=== PATIENT | male | born 1965 | race Caucasian/White ===

== ENCOUNTER → 2016-03-27 | Outpatient (CLI) | payer BC ==
[~2016-03-27] VITALS: Ht 167.6 cm; Wt 90.7 kg
[~2016-03-27] MED LIST: ALBUTEROL MDI INH; AZIT500T PO; BACIDCA PO; BUDE0.5S INH; LIDOCAINE 2% INJ 100 MG/5 ML SDV (FOR ANES.) As Ordered ONE; LOSA25TA8 PO; METH40VIAL IV; MOXI400IV IV; MUCI600T34 PO; NS 1,000 ML IV SCH; PRED20TA PO; PROPOFOL 200 MG/20 ML VIAL As Ordered ONE; SOLU125I IV; [UNRECOGNIZED DRUG - CODE] IM; diovan; duoneb
--- NOTE | 2016-03-27 13:03 | ROOR ---
Patient Name: Ashok Rosenberg Procedure Date: 03/27/2016 12:39 PM Date of : 1965 Age: 50 Room: [facility] Gender: Male Note Status: Finalized Procedure: Colonoscopy Indications: High risk colon cancer surveillance: Personal history of colonic polyps Providers: Malcolm Santoyo Jr, MD Referring MD: Kianna Cruz DO Requesting Provider: Medicines: Propofol per Anesthesia Complications: No immediate complications. Procedure: Pre-Anesthesia Assessment: - Prior to the procedure, a History and Physical was performed, and patient medications and allergies were reviewed. The patient is competent. The risks and benefits of the procedure and the sedation options and risks were discussed with the patient. All questions were answered and informed consent was obtained. Patient identification and proposed procedure were verified by the physician and the nurse in the pre-procedure area and in the procedure room. Mental Status Examination: alert and oriented. Airway Examination: normal oropharyngeal airway and neck mobility. Respiratory Examination: clear to auscultation. CV Examination: normal. ASA Grade Assessment: II - A patient with mild systemic disease. After reviewing the risks and benefits, the patient was deemed in satisfactory condition to undergo the procedure. The anesthesia plan was to use moderate sedation / analgesia (conscious sedation). Immediately prior to administration of medications, the patient was re-assessed for adequacy to receive sedatives. The heart rate, respiratory rate, oxygen saturations, blood pressure, adequacy of pulmonary ventilation, and response to care were monitored throughout the procedure. The physical status of the patient was re-assessed after the procedure. The Colonoscope was introduced through the anus and advanced to the cecum, identified by appendiceal orifice and ileocecal valve. The quality of the bowel preparation was adequate and good. The colonoscopy was performed without difficulty. The patient tolerated the procedure well. Findings: The perianal exam findings include non-thrombosed internal hemorrhoids, internal hemorrhoids that prolapse with straining, but spontaneously regress to the resting position (Grade II) and internal hemorrhoids that prolapse with straining, but require manual replacement into the anal canal (Grade III). Multiple small and large-mouthed diverticula were found in the sigmoid colon. Three polyps were found in the sigmoid colon, descending colon and cecum. The polyps were small in size. These polyps were removed with a hot snare. Resection was complete, but the polyp tissue was only partially retrieved. A medium polyp was found in the ascending colon. The polyp was removed with a hot snare. Resection and retrieval were complete. Impression: - Non-thrombosed internal hemorrhoids, internal hemorrhoids that prolapse with straining, but spontaneously regress to the resting position (Grade II) and internal hemorrhoids that prolapse with straining, but require manual replacement into the anal canal (Grade III) found on perianal exam. - Diverticulosis in the sigmoid colon. - Three small polyps in the sigmoid colon, in the descending colon and in the cecum, removed with a hot snare. Complete resection. Partial retrieval. - One medium polyp in the ascending colon, removed with a hot snare. Resected and retrieved. Recommendation: - Discharge patient to home (ambulatory). - Repeat colonoscopy in 3 years for surveillance. Malcolm Santoyo MD Malcolm Santoyo Jr, MD 03/27/2016 1:02:41 PM This report has been signed electronically. Number of Addenda: 0 Note Initiated On: 03/27/2016 12:39 PM Estimated Blood Loss: Estimated blood loss: none.
[2016-03-27 13:45] VITALS: BP 132/77
== END ==
LOC: M OPP 11:50
PROVIDERS: ATTEND Surgery
DX: Z12.11 Encounter for screening for malignant neoplasm of colon (principal); Z86.010 Personal history of colon polyps; K64.2 Third degree hemorrhoids; K57.30 Diverticulosis of large intestine without perforation or abscess without bleeding; D12.5 Benign neoplasm of sigmoid colon; D12.4 Benign neoplasm of descending colon; D12.0 Benign neoplasm of cecum; D12.2 Benign neoplasm of ascending colon; I10 Essential (primary) hypertension; Z72.0 Tobacco use; Z79.899 Other long term (current) drug therapy; Z88.5 Allergy status to narcotic agent

== ENCOUNTER → 2016-08-08 | Outpatient (REF) | payer BC ==
[~2016-08-08] MED LIST changes: -LIDOCAINE 2% INJ 100 MG/5 ML SDV (FOR ANES.) As Ordered ONE; -NS 1,000 ML IV SCH; -PROPOFOL 200 MG/20 ML VIAL As Ordered ONE
[2016-08-10 00:06] LABS: Lyme Disease IgG/IgM Antibodie <0.91 ISR (0.00-0.90); Lyme Disease IgM Ab Quantitati <0.80 index (0.00-0.79); SJOGREN'S ANTI SS-A <0.2 AI (0.0-0.9); SJOGREN'S ANTI SS-B <0.2 AI (0.0-0.9)
== END ==
LOC: M LAB REF 12:54
PROVIDERS: ATTEND Internal Medicine
DX: M25.50 Pain in unspecified joint (principal)

== ENCOUNTER 2016-11-21 12:55 | Emergency (ER) | payer BC ==
[~2016-11-21] VITALS: Ht 165.1 cm; Wt 95.5 kg
[2016-11-21] MEDS ORDERED: ONDANSETRON 4 MG ORAL DISINTEGRATING TAB (S0181) PO ONE (14:00)
[2016-11-21] MEDS ORDERED: KETOROLAC TROMETHAMINE 10 MG TAB PO ONE (14:00)
[2016-11-21] MEDS ORDERED: ULTR50TA8 PO (14:57)
[2016-11-21] MEDS ORDERED: ZOFR4TAB3 PO (14:57)
[2016-11-21] MEDS ORDERED: FLAG500T PO (14:57)
[2016-11-21] MEDS ORDERED: CIPR-249 PO (14:57)
[2016-11-21 15:03] VITALS: BP 137/72
--- NOTE | 2016-11-21 15:15 | REP ---
CT ABDOMEN AND PELVIS WITHOUT CONTRAST: CT abdomen and pelvis performed without oral or IV contrast. Sagittal and coronal reconstruction images are performed. No infiltrate is seen in the visualized lung bases. The liver, spleen, adrenals, pancreas and right kidney appear unremarkable. Left kidney again demonstrates a cyst in the lower pole. This measures about 4 cm in diameter. There is no hydronephrosis bilaterally. There is no abdominal aortic aneurysm. There is no adenopathy. There is no free air or free fluid. There are two adjacent ventral hernias in the region of the umbilicus. These have been seen on prior study of 01/17/2014. There is diverticulosis of the sigmoid colon with segmental thickening and inflammatory change in the surrounding fat consistent with diverticulitis. No abscess is seen. The urinary bladder is unremarkable. IMPRESSION: Sigmoid diverticulitis. No free air, free fluid, or abscess. Two ventral hernias containing fat are again noted in the region of the umbilicus as seen on prior study in 2013. There is a cyst in the lower pole of the left kidney. Signed by Elías Rodrigez MD 11/21/2016 07:22 P
== END 2016-11-21 15:05 | disposition home or self-care (01) ==
LOC: M ED 12:55
DX: K57.92 Diverticulitis of intestine, part unspecified, without perforation or abscess without bleeding (principal); I10 Essential (primary) hypertension; Z79.899 Other long term (current) drug therapy; Z88.5 Allergy status to narcotic agent; Z88.8 Allergy status to other drugs, medicaments and biological substances; Z91.040 Latex allergy status; F17.210 Nicotine dependence, cigarettes, uncomplicated

== ENCOUNTER → 2016-12-19 | Outpatient (CLI) | payer BC ==
[~2016-12-19] MED LIST changes: +CIPR-249 PO; +FLAG500T PO; +ULTR50TA8 PO; +ZOFR4TAB3 PO
--- NOTE | 2016-12-19 13:45 | REP ---
RIGHT ELBOW, FOUR VIEWS: HISTORY: Pain. There is no acute fracture or dislocation. The joint space is normal in appearance. A small osteophyte is present on the posterior ulna. IMPRESSION: There is no acute fracture or dislocation. Signed by Maicol Briceño MD 12/19/2016 01:53 P
== END ==
LOC: M LRY 12:50
PROVIDERS: ATTEND Nurse Practitioner Family
DX: M25.521 Pain in right elbow (principal)

== ENCOUNTER 2017-03-12 14:48 | Emergency (ER) | payer OTHER, BC ==
[2017-03-12] MEDS: RABIES VACCINE HUMAN 2.5 INTERNATIONAL UNITS/ML VIAL (90675) IM (15:30)
[2017-03-12] MEDS ORDERED: RABIES IMMUNE GLOBULIN 1500 INTERNATIONAL UNITS/10 ML VIAL (90375) IM (15:30)
[2017-03-12] MEDS: RABIES IMMUNE GLOBULIN 300 INTERNATIONAL UNITS/2 ML VIAL (90375) IM (16:06)
[2017-03-12] MEDS: RABIES IMMUNE GLOBULIN 1500 INTERNATIONAL UNITS/10 ML VIAL (90375) IM (16:06)
== END 2017-03-12 16:26 | disposition home or self-care (01) ==
LOC: M ED 14:48
DX: S61.256A Open bite of right little finger without damage to nail, initial encounter (principal); W55.81XA Bitten by other mammals, initial encounter; Y92.008 Other place in unspecified non-institutional (private) residence as the place of occurrence of the external cause; Y93.89 Activity, other specified; Y99.0 Civilian activity done for income or pay; I10 Essential (primary) hypertension; F17.210 Nicotine dependence, cigarettes, uncomplicated; Z79.899 Other long term (current) drug therapy; Z88.5 Allergy status to narcotic agent; Z91.040 Latex allergy status; Z88.8 Allergy status to other drugs, medicaments and biological substances; Z98.890 Other specified postprocedural states
CPT/HCPCS: 90375

== ENCOUNTER 2017-03-15 11:30 | Emergency (ER) | payer OTHER ==
[2017-03-15] MEDS: RABIES VACCINE HUMAN 2.5 INTERNATIONAL UNITS/ML VIAL (90675) IM (11:53)
== END 2017-03-15 12:01 | disposition home or self-care (01) ==
LOC: M ED 11:30
DX: Z20.3 Contact with and (suspected) exposure to rabies (principal); I10 Essential (primary) hypertension; F17.210 Nicotine dependence, cigarettes, uncomplicated; Z79.899 Other long term (current) drug therapy; Z88.5 Allergy status to narcotic agent; Z91.040 Latex allergy status; Z88.8 Allergy status to other drugs, medicaments and biological substances; Z98.890 Other specified postprocedural states
CPT/HCPCS: 90675

== ENCOUNTER 2017-03-19 14:36 | Emergency (ER) | payer OTHER ==
[2017-03-19] MEDS: RABIES VACCINE HUMAN 2.5 INTERNATIONAL UNITS/ML VIAL (90675) IM (15:17)
== END 2017-03-19 15:43 | disposition home or self-care (01) ==
LOC: M ED 14:36
DX: Z20.3 Contact with and (suspected) exposure to rabies (principal); I10 Essential (primary) hypertension; F17.210 Nicotine dependence, cigarettes, uncomplicated; Z79.899 Other long term (current) drug therapy; Z88.5 Allergy status to narcotic agent; Z88.8 Allergy status to other drugs, medicaments and biological substances; Z91.040 Latex allergy status; Z98.890 Other specified postprocedural states
CPT/HCPCS: 90471

== ENCOUNTER 2017-03-26 06:17 | Emergency (ER) | payer OTHER ==
[2017-03-26] MEDS: RABIES VACCINE HUMAN 2.5 INTERNATIONAL UNITS/ML VIAL (90675) IM (06:56)
== END 2017-03-26 07:03 | disposition home or self-care (01) ==
LOC: M ED 06:17
DX: Z20.3 Contact with and (suspected) exposure to rabies (principal); W55.81XA Bitten by other mammals, initial encounter; Y92.89 Other specified places as the place of occurrence of the external cause; Y93.89 Activity, other specified; Y99.0 Civilian activity done for income or pay
CPT/HCPCS: 90471

== ENCOUNTER → 2017-10-22 | Outpatient (CLI) | payer OTHER, BC | LOC: M LRY 18:23 | DX: S99.922A Unspecified injury of left foot, initial encounter (principal); M77.32 Calcaneal spur, left foot | CPT/HCPCS: 73630 ==

== ENCOUNTER → 2018-01-04 | Outpatient (CLI) | payer BC | LOC: M WUC 09:53 | DX: R07.89 Other chest pain (principal); M51.34 Other intervertebral disc degeneration, thoracic region | CPT/HCPCS: 71046 ==

== ENCOUNTER → 2018-11-12 | Outpatient (CLI) | payer BC ==
[~2018-11-12] MED LIST changes: +AVEL1INJ IV; +GASTROGRAFIN SOLUTION 30ML (Q9963) As Ordered ONE; +ISOVUE-370 76% 100ML VIAL (Q9967) As Ordered ONE; +LOSA25TA14 PO; -LOSA25TA8 PO; -MOXI400IV IV; +ZOFR4TAB14 PO; -ZOFR4TAB3 PO
[2018-11-12 13:52] LABS: HEMATOCRIT 47.8 % (42.0-52.0); HEMOGLOBIN 15.9 g/dl (13.5-17.5); MEAN CORPUSCULAR HEMOGLOBIN 31.2 pg (27.0-33.0); MEAN CORPUSCULAR HGB CONC 33.3 g/dl (32.0-36.5); MEAN CORPUSCULAR VOLUME 93.9 fl (80.0-96.0); PLATELET COUNT, AUTOMATED 150 10^3/uL (150-450); RED BLOOD COUNT 5.09 10^6/uL (4.30-6.10); WHITE BLOOD COUNT 7.9 10^3/uL (4.0-10.0)
[2018-11-12 14:21] LABS: BLOOD UREA NITROGEN 12 MG/DL (7-18); CALCIUM LEVEL 9.1 MG/DL (8.5-10.1); CARBON DIOXIDE LEVEL 27 MEQ/L (21-32); CHLORIDE LEVEL 107 MEQ/L (98-107); CREATININE FOR GFR 0.84 MG/DL (0.70-1.30); GLOMERULAR FILTRATION RATE > 60.0 (>56); GLUCOSE, FASTING 75 MG/DL (70-100); POTASSIUM SERUM 4.2 MEQ/L (3.5-5.1); SODIUM LEVEL 141 MEQ/L (136-145)
--- NOTE | 2018-11-12 14:49 | REP ---
CT of the abdomen pelvis without and with contrast Indication: Generalized abdominal pain. Comparison: CT abdomen pelvis of 11/21/2016. Technique: Axial CT of the abdomen was performed without contrast. Following the uneventful intravenous administration of 100 ml Isovue 370, axial CT of the abdomen and pelvis was performed with contrast. Oral contrast media was administered. Coronal and sagittal soft tissue reformatted images and axial lung images of the lung bases were provided. Findings: Within the lung bases, there is no suspicious nodule. The heart size is normal. There is no pleural or pericardial effusion. The liver is normal in size and without focal lesion. The spleen, adrenal glands, pancreas and right kidney are unremarkable. There is similar appearance of a 5 cm left renal lower pole cyst. There is no hydronephrosis or nephrolithiasis. The abdominal aorta is normal in course and caliber. There are atherosclerotic calcifications of the abdominal aorta and its branches. There are tiny retroperitoneal mesenteric lymph nodes. The stomach is partially distended. Small and large bowel loops are normal in caliber. There is diffuse thickening of the sigmoid colon similar to prior with multiple sigmoid diverticula. There is no soft tissue stranding of the surrounding fat to suggest acute diverticulitis. There is no intraperitoneal free air or free fluid. There is no focal fluid collection. The urinary bladder is partially distended and unremarkable. There is some focal calcification within the prostate gland. The seminal vesicles are collapsed. There is similar appearance of 2 fat containing periumbilical focal hernias. There is rim calcified granulomata within the subcutaneous soft tissues of the right hip. No suspicious focal lesion is identified. Impression: Sigmoid diverticulosis without findings for acute diverticulitis. No evidence of acute disease within the abdomen or pelvis. Similar fat containing ventral abdominal hernias. Unchanged right renal cyst. Electronically Signed by Akbar Ferrari MD 11/12/2018 02:42 P
== END ==
LOC: M RAD 12:02
PROVIDERS: ATTEND Surgery
DX: K57.32 Diverticulitis of large intestine without perforation or abscess without bleeding (principal); N28.1 Cyst of kidney, acquired
CPT/HCPCS: 74178; 80048; 85027; Q9963; Q9967

== ENCOUNTER → 2018-12-10 | Outpatient (CLI) | payer BC ==
[~2018-12-10] MED LIST changes: -GASTROGRAFIN SOLUTION 30ML (Q9963) As Ordered ONE; -ISOVUE-370 76% 100ML VIAL (Q9967) As Ordered ONE; +PERC5TAB12 PO
--- NOTE | 2018-12-11 10:04 | ECGEPIP ---
[facility] Test Date: 2018-12-10 Pat Name: CASSANDRA RAMAN Department: Room: - Gender: Male Card Placer: VETO : 1965 Requested By: BETTY Red Order Number: [id number] Reading MD: Gunner Villalba Measurements Intervals [place] Rate: 54 P: 43 [place]: 146 QRS: 38 QRSD: 93 T: 53 QT: 390 QTc: 373 Interpretive Statements SINUS BRADYCARDIA NO PRIOR Electronically Signed on 12-11-2018 10:04:37 EDT by Gunner Villalba
== END ==
LOC: M EKG 12:07
PROVIDERS: ATTEND Anesthesiology
DX: Z01.818 Encounter for other preprocedural examination (principal); R03.0 Elevated blood-pressure reading, without diagnosis of hypertension

== ENCOUNTER 2018-12-14 12:01 | Day surgery (SDC) | payer BC ==
[~2018-12-14] VITALS: Ht 165.1 cm; Wt 100.9 kg
[~2018-12-14 12:01] MED LIST changes: +LIDOCAINE 1% MDV 20ML VIAL SQ PRN; +LR 1,000 ML IV ONE; -PERC5TAB12 PO; +ceFAZolin SOD 1 GM in D5W MINI-BAG PLUS 50 ML IV ONE
[2018-12-14] MEDS ORDERED: PROPOFOL 200 MG/20 ML VIAL As Ordered ONE ×2 (12:45→14:28)
[2018-12-14] MEDS ORDERED: ONDANSETRON 4MG/2ML VIAL (J2405) As Ordered ONE (12:45)
[2018-12-14] MEDS ORDERED: dexameTHASONE 4 MG/ML 1ML VIAL (J1100) As Ordered ONE (12:45)
[2018-12-14] MEDS ORDERED: ROCURONIUM BROMIDE 50 MG/5 ML VIAL As Ordered ONE ×2 (12:45→15:19)
[2018-12-14] MEDS ORDERED: LIDOCAINE 2% INJ 100 MG/5 ML SDV (FOR ANES.) As Ordered ONE (12:45)
[2018-12-14] MEDS ORDERED: fentaNYL 100 MCG/2 ML INJECTION (J3010) As Ordered ONE (12:46)
[2018-12-14] MEDS ORDERED: MIDAZOLAM INJ 2 MG/2 ML VIAL (J2250) As Ordered ONE (12:46)
[2018-12-14] MEDS ORDERED: LACRILUBE (AKWA TEARS) OPHTH OINT 3.5 GM As Ordered ONE (12:54)
[2018-12-14] MEDS ORDERED: BUPIVACAINE/EPIN 0.25% 30 ML VIAL As Ordered ONE (14:02)
[2018-12-14] MEDS ORDERED: fentaNYL 250 MCG/5 ML INJECTION (J3010) As Ordered ONE (14:26)
[2018-12-14] MEDS ORDERED: SUGAMMADEX SODIUM 500 MG/5 ML VIAL (BRIDION) As Ordered ONE (14:44)
[2018-12-14] MEDS ORDERED: KETOROLAC 60 MG/2 ML VIAL (J1885) As Ordered ONE (14:44)
[2018-12-14] MEDS ORDERED: ACETAMINOPHEN 1000MG 100ML IV BTL (OFIRMEV) (J0131 PER 10MG) As Ordered ONE (14:44)
[2018-12-14] MEDS ORDERED: GLYCOPYRROLATE INJ 0.2 MG/ML 2 ML VIAL As Ordered ONE (14:51)
[2018-12-14] MEDS ORDERED: KETAMINE HCL 200 MG/20 ML VIAL As Ordered ONE (14:55)
[2018-12-14] MEDS ORDERED: BUPIVACAINE LIPOSOME/PF 1.3% 20ML VIAL (13.3MG/ML)(EXPAREL)(C9290 PER1MG) As Ordered ONE (14:56)
[2018-12-14] MEDS ORDERED: BUPIVACAINE HCL 0.25% 10 ML VIAL As Ordered ONE (14:56)
[2018-12-14] MEDS ORDERED: oxyCODONE 5MG TAB As Ordered ONE (16:19)
[2018-12-14] MEDS: oxyCODONE 5MG TAB PO PRN ×2 (16:20→16:50)
[2018-12-14] MEDS ORDERED: fentaNYL 100 MCG/2 ML INJECTION (J3010) IV PRN (16:30)
[2018-12-14] MEDS ORDERED: ONDANSETRON 4MG/2ML VIAL (J2405) IV PRN (16:30)
[2018-12-14] MEDS ORDERED: LR 1,000 ML IV SCH ×2 (16:30→17:31)
[2018-12-14] MEDS ORDERED: PERC5TAB12 PO (16:42)
[2018-12-14 18:10] VITALS: BP 136/80
== END 2018-12-14 18:15 | disposition home or self-care (01) ==
LOC: M SDC 12:01
PROVIDERS: ATTEND Surgery
DX: K42.9 Umbilical hernia without obstruction or gangrene (principal); I10 Essential (primary) hypertension; K57.92 Diverticulitis of intestine, part unspecified, without perforation or abscess without bleeding; Z79.899 Other long term (current) drug therapy; Z88.5 Allergy status to narcotic agent
CPT/HCPCS: 49652; C1781; C9290; J0131; J0690; J1100; J1885; J2250; J2405; J3010

== ENCOUNTER → 2019-03-03 | Outpatient (REF) | payer BC ==
[~2019-03-03] MED LIST changes: -LIDOCAINE 1% MDV 20ML VIAL SQ PRN; -LR 1,000 ML IV ONE; +PERC5TAB12 PO; -ceFAZolin SOD 1 GM in D5W MINI-BAG PLUS 50 ML IV ONE
[2019-03-03 17:16] LABS: HEMATOCRIT 46.7 % (42.0-52.0); HEMOGLOBIN 15.2 g/dl (13.5-17.5)
[2019-03-03 17:43] LABS: BLOOD UREA NITROGEN 13 MG/DL (7-18); CALCIUM LEVEL 8.7 MG/DL (8.5-10.1); CARBON DIOXIDE LEVEL 29 MEQ/L (21-32); CHLORIDE LEVEL 106 MEQ/L (98-107); CHOLESTEROL LEVEL 131 MG/DL (<200); CREATININE FOR GFR 1.02 MG/DL (0.70-1.30); GLOMERULAR FILTRATION RATE > 60.0 (>56); GLUCOSE, FASTING 101 MG/DL (70-100); HDL CHOLESTEROL 37 MG/DL (>40); LDL CHOLESTEROL 67 MG/DL (<100); NON-HDL-C 94 MG/DL; POTASSIUM SERUM 4.2 MEQ/L (3.5-5.1); SODIUM LEVEL 142 MEQ/L (136-145); TRIGLYCERIDES LEVEL 133 MG/DL (<150)
[2019-03-03 17:49] LABS: HEMOGLOBIN A1c 6.1 %
== END ==
LOC: M SFHCLERA 13:44
PROVIDERS: ATTEND Family Medicine
DX: Z13.1 Encounter for screening for diabetes mellitus (principal); Z13.220 Encounter for screening for lipoid disorders

== ENCOUNTER 2019-04-14 08:03 | Day surgery (SDC) | payer BC ==
[~2019-04-14] VITALS: Ht 165.1 cm; Wt 99.2 kg
[~2019-04-14 08:03] MED LIST changes: +NS 1,000 ML IV ONE
[2019-04-14] MEDS ORDERED: LIDOCAINE 2% INJ 100 MG/5 ML SDV (FOR ANES.) As Ordered ONE (09:11)
[2019-04-14] MEDS ORDERED: propofoL 500 MG/50 ML VIAL As Ordered ONE (09:11)
--- NOTE | 2019-04-14 09:29 | ROOR ---
Patient Name: Ashok Rosenberg Procedure Date: 04/14/2019 8:54 AM Date of : 1965 Age: 53 Room: [facility] Gender: Male Note Status: Finalized Procedure: Colonoscopy Indications: High risk colon cancer surveillance: Personal history of colonic polyps Providers: Malclom Santoyo Jr, MD Referring MD: Kianna Cruz DO Requesting Provider: Medicines: Propofol per Anesthesia Complications: No immediate complications. Procedure: Pre-Anesthesia Assessment: - Prior to the procedure, a History and Physical was performed, and patient medications and allergies were reviewed. The patient is competent. The risks and benefits of the procedure and the sedation options and risks were discussed with the patient. All questions were answered and informed consent was obtained. Patient identification and proposed procedure were verified by the physician and the nurse in the pre-procedure area and in the procedure room. Mental Status Examination: alert and oriented. Airway Examination: normal oropharyngeal airway and neck mobility. Respiratory Examination: clear to auscultation. CV Examination: normal. ASA Grade Assessment: II - A patient with mild systemic disease. After reviewing the risks and benefits, the patient was deemed in satisfactory condition to undergo the procedure. The anesthesia plan was to use moderate sedation / analgesia (conscious sedation). Immediately prior to administration of medications, the patient was re-assessed for adequacy to receive sedatives. The heart rate, respiratory rate, oxygen saturations, blood pressure, adequacy of pulmonary ventilation, and response to care were monitored throughout the procedure. The physical status of the patient was re-assessed after the procedure. The Colonoscope was introduced through the anus and advanced to the cecum, identified by appendiceal orifice and ileocecal valve. The colonoscopy was performed without difficulty. The patient tolerated the procedure well. The quality of the bowel preparation was adequate. Findings: The recto-sigmoid colon, descending colon, ascending colon, cecum, appendiceal orifice and ileocecal valve appeared normal. A medium polyp was found in the transverse colon. The polyp was removed with a hot snare. Resection and retrieval were complete. A diminutive polyp was found in the rectum. The polyp was hyperplastic. The polyp was removed with a hot snare. Resection was complete, but the polyp tissue was not retrieved. Many small and large-mouthed diverticula were found in the sigmoid colon and descending colon. Impression: - The recto-sigmoid colon, descending colon, ascending colon, cecum, appendiceal orifice and ileocecal valve are normal. - One medium polyp in the transverse colon, removed with a hot snare. Resected and retrieved. - One diminutive polyp in the rectum, removed with a hot snare. Complete resection. Polyp tissue not retrieved. - Diverticulosis in the sigmoid colon and in the descending colon. Recommendation: - Discharge patient to home (ambulatory). - Repeat colonoscopy in 3 years for surveillance. Malcolm Santoyo MD Malcolm Santoyo Jr, MD 04/14/2019 9:28:55 AM Electronically signed by Malcolm Santoyo Jr, MD Number of Addenda: 0 Note Initiated On: 04/14/2019 8:54 AM Estimated Blood Loss: Estimated blood loss: none.
[2019-04-14 10:03] VITALS: BP 158/95
== END 2019-04-14 10:04 | disposition home or self-care (01) ==
LOC: M OPP 08:03
PROVIDERS: ATTEND Surgery
DX: Z12.11 Encounter for screening for malignant neoplasm of colon (principal); Z86.010 Personal history of colon polyps; D12.3 Benign neoplasm of transverse colon; K62.1 Rectal polyp; K57.30 Diverticulosis of large intestine without perforation or abscess without bleeding; Z79.899 Other long term (current) drug therapy; F17.210 Nicotine dependence, cigarettes, uncomplicated

== ENCOUNTER 2019-05-11 13:53 | Inpatient (IN) | payer BC ==
[~2019-05-11] VITALS: Ht 165.1 cm; Wt 100.5 kg
[~2019-05-11 13:53] MED LIST changes: -ALEV220T22 PO; -BENZ-18 PO; -MUCI600T31 PO; -PROAAER10 INH
[2019-05-11] MEDS ORDERED: IPRATROPIUM 0.5MG/ALBUTEROL 2.5MG INH SOL UD 3ML (DUONEB)(J7620) NEB ONE (14:45)
[2019-05-11 14:48] LABS: BASO # 0.1 10^3/uL (0.0-0.2); BASO % 0.6 % (0.0-1.0); EOS # 0.1 10^3/uL (0.0-0.5); EOS % 0.8 % (0.0-3.0); HEMATOCRIT 48.3 % (42.0-52.0); HEMOGLOBIN 15.9 g/dl (13.5-17.5); LYMPH # 0.8 10^3/uL (1.5-5.0); LYMPH % 7.9 % (24.0-44.0); MEAN CORPUSCULAR HEMOGLOBIN 30.2 pg (27.0-33.0); MEAN CORPUSCULAR HGB CONC 32.9 g/dl (32.0-36.5); MEAN CORPUSCULAR VOLUME 91.8 fl (80.0-96.0); MONO # 0.6 10^3/uL (0.0-0.8); MONO % 6.1 % (0.0-5.0); NEUTROPHILS # 8.8 10^3/uL (1.5-8.5); NEUTROPHILS % 84.2 % (36.0-66.0); PLATELET COUNT, AUTOMATED 122 10^3/uL (150-450); RED BLOOD COUNT 5.26 10^6/uL (4.30-6.10); WHITE BLOOD COUNT 10.4 10^3/uL (4.0-10.0)
--- NOTE | 2019-05-11 15:03 | REP ---
REASON FOR EXAM: Dyspnea. COMPARISON: 01/04/2018. FINDINGS: The superior mediastinal structures are midline. The cardiac silhouette is unremarkable in size, shape, and position. The diaphragmatic surfaces of the lungs are regular, and the costophrenic angles are clear. The pulmonary song are clear. The imaged osseous structures are intact. IMPRESSION: There is no acute cardiopulmonary disease. No significant change. Electronically Signed by Gigi Day DO 05/11/2019 03:36 P
[2019-05-11 15:10] LABS: INFLUENZA A AMPLIFICATION NEGATIVE (NEGATIVE); INFLUENZA B AMPLIFICATION NEGATIVE (NEGATIVE)
[2019-05-11] MEDS ORDERED: methylPREDNISolone INJ 125 MG/2 ML VIAL (J2930) IV ONE (17:30)
[2019-05-11] MEDS: IPRATROPIUM 0.5MG/ALBUTEROL 2.5MG INH SOL UD 3ML (DUONEB)(J7620) NEB PRN ×3 (17:30→17:53)
[2019-05-11] MEDS ORDERED: NS 1,000 ML IV ONE (17:30)
[2019-05-11 17:49] LABS: ALBUMIN 3.8 GM/DL (3.2-5.2); ALT/SGPT 29 U/L (12-78); BILIRUBIN,DIRECT 0.2 MG/DL (0.0-0.2); BILIRUBIN,TOTAL 0.6 MG/DL (0.2-1.0); CK-MB VALUE MASS 1.3 NG/ML (<3.6); CPK CREATINE PHOSPHOKINASE 270 U/L (39-308); MB/CK RELATIVE INDEX 0.48 (< OR =4); TOTAL PROTEIN 6.5 GM/DL (6.4-8.2); TROPONIN I < 0.02 NG/ML (< 0.10)
[2019-05-11 17:58] LABS: ABG BASE EXCESS -2.5 (-2.0-2.0); ABG HCO3 20.6 MEQ/L (22.0-26.0); ABG PARTIAL PRESSURE CO2 31.4 mmHg (35.0-45.0); ABG PARTIAL PRESSURE O2 61.4 mmHg (75.0-100.0); ABG STANDARD HCO3 22.2 MEQ/L (22.0-26.0); ABG TOTAL CO2 21.5 MEQ/L (22.0-29.0); ABG pH (ARTERIAL) 7.434 UNITS (7.350-7.450)
[2019-05-11] MEDS ORDERED: ISOVUE-370 76% 100ML VIAL (Q9967) As Ordered ONE (18:13)
--- NOTE | 2019-05-11 19:41 | REPVR ---
PROCEDURE INFORMATION: Exam: CT Angiography Chest With Contrast Exam date and time: 05/11/2019 6:50 PM Age: 54 years old Clinical indication: Chest pain; Additional info: Hypoxia, neg cxr, dyspnea, cough TECHNIQUE: Imaging protocol: Computed tomographic angiography of the chest with intravenous contrast. 3D rendering: MIP and/or 3D reconstructed images were created by the technologist. Radiation optimization: All CT scans at this facility use at least one of these dose optimization techniques: automated exposure control; mA and/or kV adjustment per patient size (includes targeted exams where dose is matched to clinical indication); or iterative reconstruction. Contrast material: ISO 370; Contrast volume: 75 ml; Contrast route: IV; COMPARISON: CT Chest with contrast 04/06/2013 9:19 AM FINDINGS: Pulmonary arteries: Normal. No pulmonary emboli. Aorta: No aneurysmal dilatation of the thoracic aorta or dissection. Lungs: No lung consolidation. Pleural space: No pleural effusion. Heart: No cardiomegaly or pericardial effusion. Spleen: Possible clip in the spleen. No further significant findings in the upper abdomen however images are degraded by respiratory motion. Lymph nodes: No mediastinal or hilar lymphadenopathy. Calcified right hilar lymph node likely due to old granulomatous disease. Bones/joints: No significant skeletal findings other than flowing hyperostosis with bridging osteophytes in the thoracic spine. Soft tissues: Unremarkable. IMPRESSION: 1. No evidence of pulmonary emboli. 2. No evidence of pneumonia. Electronically signed by: Lisandra Staley On 05/11/2019 19:41:27 PM
[2019-05-11] MEDS ORDERED: KETOROLAC 30 MG/ML VIAL (J1885) IV ONE (20:15)
--- NOTE | 2019-05-11 20:28 | HPEPDOC ---
[facility] Medical History & Physical Date of Admission May 11, 2019 Date of Service: May 11, 2019 Primary Care Physician: Stephanie Padilla Attending Physician: TAD ELMORE MD History and Physical TIME OF SERVICE: 9:10 PM CHIEF COMPLAINT: Shortness of breath HISTORY OF PRESENT ILLNESS: This is a 54-year-old male who presents with shortness of breath associated with a dry cough, muscle aches, runny nose and fever yesterday. 3 of his coworkers have been sick Per discussion with the ER provider, his initial O2 sats when the 80s, which took him off of oxygen. His O2 sat dropped to 86. REVIEW OF SYSTEMS: 12 point review of systems negative except as listed in HPI PAST MEDICAL/ SURGICAL HISTORY: Chronic HTN Diverticular disease. Chronic back pain status post laminectomy Resection of benign mass on chest SOCIAL HISTORY: Former smoker. Drinks alcohol socially FAMILY HISTORY: He denies any family of medical problems ALLERGIES: Please see below. HOME MEDICATIONS: Please see below. Vital Signs Date Time Temp Pulse Resp B/P (MAP) Pulse Ox O2 Delivery O2 Flow Rate FiO2 05/11/19 13:54 100.3 84 22 167/94 (118) 91 Room Air 05/11/19 17:16 3.0 PHYSICAL EXAMINATION: GEN: well-nourished / well developed/ NAD INTEGUMENT: not flushed/ not jaundice HEENT: NCAT / lips acyanotic /mucus membranes moist and pink CVS: RRR/NMRG LUNGS: able to speak full sentences without stopping to take a breath / coughing /breath sounds are diminished ABDOMEN: Contour (flat) / soft & not tender with palpation MSK/EXTREMITIES: range of motion intact in all 4 extremities NEURO: CN 2-12 are grossly intact / speech is not dysarthric PSYCH: alert and oriented to person place and time/ able to understand and follow all commands LABORATORY DATA: Total Bilirubin 0.6, Direct Bilirubin 0.2, Aspartate Amino Transf (AST/SGOT) 11, Alanine Aminotransferase (ALT/SGPT) 29, Alkaline Phosphatase 71, Total Creatine Kinase 270, Creatine Kinase MB 1.3, Creatine Kinase MB Relative Index 0.48, Troponin I < 0.02, Total Protein 6.5, Albumin 3.8, Albumin/Globulin Ratio 1.41, Influenza Type A (RT-PCR) NEGATIVE, Influenza Type B (RT-PCR) NEGATIVE Blood Gas Bicarbonate Standard 22.2, Arterial Blood pH 7.434, Arterial Blood Partial Pressure CO2 31.4L, Arterial Blood Partial Pressure O2 61.4L, Arterial Blood Total CO2 21.5L, Arterial Blood HCO3 20.6L, Arterial Blood Base Excess - 2.5L, Arterial Blood Oxygen Saturation 91.0L Lactic Acid Level 2.2*H IMAGING: Chest x-ray "IMPRESSION:There is no acute cardiopulmonary disease. No significant change." CT chest "IMPRESSION: 1. No evidence of pulmonary emboli. 2. No evidence of p neumonia. " MICROBIOLOGY: Please see below. ASSESSMENT: Mr. Rosenberg is a 54-year-old with a history of hypertension who is admitted for management of sepsis secondary to RSV. PLAN: 1. Sepsis secondary to RSV Criteria include tachycardia and tachypnea He also has hypoxia NEW2S Score = high risk Plan: admit to PCU / telemetry / trend lactic acid/ continuous pulse ox/supplemental oxygen/ IV fluids/f/u blood cx / albuterol when necessary Acetaminophen PRN for fever / target MAP 65 to 70 / f/u Is and Os with target UOP of at least 0.5 ml/kg/H / target serum glucose 140-180 while acutely ill 2. Anion gap metabolic acidosis secondary to lactic acidosis. The persistently elevated lactic acid is likely due to neb treatments. - IVF/ trend lactic acid 3. Chronic HTN - losartan 4. Obesity with BMI of 37 complicates care - f/u A1C / the pt can f/u w his or her PCP for STOP BANG questionnaire, senior behavioral scientist consult DVT PROPHYLAXIS: Lovenox DISPOSITION: Home after more than 2 midnight's stay Home Medications Scheduled Losartan Potassium (Losartan Potassium) 25 Mg Tab, 25 MG PO DAILY Scheduled PRN Naproxen Sodium (Aleve) 220 Mg Tablet, 440 MG PO BID PRN for PAIN Allergies Coded Allergies: hydromorphone (Verified Allergy, Severe, THROAT SWELLING, 11/29/18) meperidine (Verified Allergy, Severe, THROAT SWELLING, 11/29/18) A-FIB/CHADSVASC A-FIB History Current/History of A-Fib/PAF?: No Current PO Anticoag Therapy: No TAD ELMORE MD May 11, 2019 20:28
[2019-05-11] MEDS ORDERED: MOM 30ML SUSPENSION UDC PO PRN (20:30)
[2019-05-11] MEDS ORDERED: MAALOX 30 ML SUSP *UDC PO PRN (20:30)
[2019-05-11] MEDS ORDERED: ALEV220T22 PO (20:59)
--- NOTE | 2019-05-11 21:01 | ECGEPIP ---
[facility] - ED Test Date: 2019-05-11 Pat Name: CASSANDRA RAMAN Department: Room: - Gender: Male Deburrer: levi : 1965 Requested By: DAVE Everett PA-C Order Number: [id number] Reading MD: Jody Benitez Measurements Intervals [place] Rate: 90 P: 51 [place]: 147 QRS: 43 QRSD: 98 T: 53 QT: 372 QTc: 456 Interpretive Statements SINUS RHYTHM baseline artifact may affect interpretation INCREASED RATE 12/10/18 Electronically Signed on 05-11-2019 21:01:31 EDT by Jody Benitez
--- NOTE | 2019-05-11 21:04 | ECGEPIP ---
[facility] - ED Test Date: 2019-05-11 Pat Name: CASSANDRA RAMAN Department: Room: - Gender: Male Dice Table Person: ADILENE : 1965 Requested By: DAVE Everett PA-C Order Number: [id number] Reading MD: Jody Benitez Measurements Intervals [place] Rate: 102 P: -2 NJ: 113 QRS: 34 QRSD: 90 T: 46 QT: 325 QTc: 425 Interpretive Statements SINUS TACHYCARDIA WITH SHORT [place] INTERVAL ABNORMAL RHYTHM ECG INCREASED RATE 05/11/19 17:49 Electronically Signed on 05-11-2019 21:04:02 EDT by Jody Benitez
[2019-05-11 23:45] VITALS: BP 150/62
[2019-05-12] VITALS (36 sets, daily range): BP systolic 123–160; BP diastolic 42–83; O2SAT 90–96
[2019-05-12] MEDS: ACETAMINOPHEN TAB 650MG DOSE (2X325MG) PO PRN ×3 (00:01→20:16)
[2019-05-12] MEDS: DOCUSATE SODIUM 100 MG CAP PO SCH ×3 (00:20→20:17)
[2019-05-12] MEDS: ALBUTEROL SULFATE 2.5 MG/0.5 ML INH NEB SOLN NEB PRN ×2 (00:33→11:24)
[2019-05-12 04:24] LABS: HEMATOCRIT 45.6 % (42.0-52.0); MEAN CORPUSCULAR HEMOGLOBIN 30.5 pg (27.0-33.0); MEAN CORPUSCULAR HGB CONC 32.9 g/dl (32.0-36.5); MEAN CORPUSCULAR VOLUME 92.7 fl (80.0-96.0); PLATELET COUNT, AUTOMATED 137 10^3/uL (150-450); RED BLOOD COUNT 4.92 10^6/uL (4.30-6.10); WHITE BLOOD COUNT 7.9 10^3/uL (4.0-10.0)
[2019-05-12 05:00] LABS: BLOOD UREA NITROGEN 15 MG/DL (7-18); CALCIUM LEVEL 7.9 MG/DL (8.5-10.1); CARBON DIOXIDE LEVEL 24 MEQ/L (21-32); CHLORIDE LEVEL 108 MEQ/L (98-107); CREATININE FOR GFR 0.84 MG/DL (0.70-1.30); GLOMERULAR FILTRATION RATE > 60.0 (>56); GLUCOSE, FASTING 174 MG/DL (70-100); MAGNESIUM LEVEL 2.2 MG/DL (1.8-2.4); POTASSIUM SERUM 6.4 MEQ/L (3.5-5.1); SODIUM LEVEL 140 MEQ/L (136-145)
[2019-05-12] MEDS ORDERED: DEXTROSE 50% 50 ML SYRINGE IV STA (05:26)
[2019-05-12] MEDS ORDERED: HumuLIN R (REGULAR) INSULIN (NovoLIN R) **100U/ML** PER UNIT IV STA (05:26)
[2019-05-12] MEDS ORDERED: CALCIUM GLUCONATE 1,000 MG in D5W MINI-BAG PLUS 100 ML IV ONE (05:30)
[2019-05-12] MEDS ORDERED: SOD POLYSTYRENE SULFONATE SUSP 15 GM/60 ML UD PO ONE (05:30)
[2019-05-12] MEDS: ENOXAPARIN 40 MG/0.4 ML SYRINGE (J1650) SC SCH (08:28)
[2019-05-12] MEDS ORDERED: LOSARTAN 25 MG TAB PO SCH (09:00)
--- NOTE | 2019-05-12 10:04 | ECGEPIP ---
[facility] Test Date: 2019-05-12 Pat Name: CASSANDRA RAMAN Department: Room: [place] [address] Gender: Male Docketing Specialist: CHICO : 1965 Requested By: MANNY CRAWFORD Order Number: [id number] Reading MD: Bambi Rod Measurements Intervals [place] Rate: 83 P: [place]: 0 QRS: 56 QRSD: 68 T: 0 QT: 172 QTc: 203 Interpretive Statements NSR PACS NEW RATE SLOWER C/W 05/11/19 Electronically Signed on 05-12-2019 10:04:12 EDT by Bambi Rod
--- NOTE | 2019-05-12 13:51 | IPNPDOC ---
Subjective Date Seen The patient was seen on 05/12/19. Subjective Chief Complaint/HPI K+ level has normalized on repeat. Ashok states his breathing is feeling better this morning Objective Physical Examination General Exam: Positive: Alert, Cooperative, Mild Distress Eye Exam: Positive: PERRLA, EOMI; Negative: Sclera icteric Neck Exam: Positive: Supple Chest Exam: Positive: Diminished; Negative: Rhonchi, Wheezing Abdomen Exam: Positive: Normal bowel sounds Extremity Exam: Positive: Normal pulses; Negative: Clubbing, Cyanosis, Edema Skin Exam: Positive: Nl turgor and temperature; Negative: Rash Neuro Exam: Positive: Normal Speech Psych Exam: Positive: Mental status NL, Mood NL, Anxiety Assessment /Plan Assessment # Hyperkalemia likely from losartan and acute illness - resolved # Sepsis 2/2 to RSV URI with Acute hypoxic respiratory failure - continue supportive care, wean oxygen from 6 liters to off if clinically permissible - nebs # Chronic HTN - losartan held for hyperkalemia Dispo: home when off oxygen Plan/VTE VTE Prophylaxis Ordered?: Yes (lovenox sq) VTE Exclusion Mechanical Proph: N/A:VTE Prophy Ordered VTE Exclusion Pharmacological: N/A:VTE Prophy Ordered VS, I&O, 24H, Fishbone Vital Signs/I&O Vital Signs Date Time Temp Pulse Resp B/P (MAP) Pulse Ox O2 Delivery O2 Flow Rate FiO2 05/12/19 13:15 94 Nasal Cannula 3.0 05/12/19 08:03 97.5 102 17 144/82 (102) I&O- Last 24 Hours up to 6 AM 05/12/19 06:00 Intake Total 1000 ml Balance 1000 ml Laboratory Data 24H LABS Laboratory Tests 2 05/11/19 14:27: Immature Granulocyte % (Auto) 0.4, Neutrophils (%) (Auto) 84.2H, Lymphocytes (%) (Auto) 7.9L, Monocytes (%) (Auto) 6.1H, Eosinophils (%) (Auto) 0.8, Basophils (%) (Auto) 0.6, Neutrophils # (Auto) 8.8H, Lymphocytes # (Auto) 0.8L, Monocytes # (Auto) 0.6, Eosinophils # (Auto) 0.1, Basophils # (Auto) 0.1, Nucleated Red Blood Cells % (auto) 0.0, Total Bilirubin 0.6, Direct Bilirubin 0.2, Aspartate Amino Transf (AST/SGOT) 11, Alanine Aminotransferase (ALT/SGPT) 29, Alkaline Phosphatase 71, Total Creatine Kinase 270, Creatine Kinase MB 1.3, Creatine Kinase MB Relative Index 0.48, Troponin I < 0.02, Total Protein 6.5, Albumin 3.8, Albumin/Globulin Ratio 1.41, Influenza Type A (RT-PCR) NEGATIVE, Influenza Type B (RT-PCR) NEGATIVE 05/11/19 14:33: POC Glucose (Misc Panel) 99, POC Sodium (Misc Panel) 140, POC Potassium (Misc Panel) 3.9, POC Chloride (Misc Panel) 99, POC Total CO2 (Misc Panel) 26.0, POC Blood Urea Nitrogen (Misc Panel 13, POC Ionized Calcium (Misc Panel) 4.6, POC Creatinine (Misc Panel) 1.0, POC Hematocrit (Misc Panel) 49.0 05/11/19 17:43: Blood Gas Bicarbonate Standard 22.2, Arterial Blood pH 7.434, Arterial Blood Partial Pressure CO2 31.4L, Arterial Blood Partial Pressure O2 61.4L, Arterial Blood Total CO2 21.5L, Arterial Blood HCO3 20.6L, Arterial Blood Base Excess - 2.5L, Arterial Blood Oxygen Saturation 91.0L 05/11/19 19:39: Lactic Acid Level 2.2*H 05/12/19 00:00: Lactic Acid Level 3.4*H 05/12/19 04:08: Anion Gap 8, Glomerular Filtration Rate > 60.0, Estimated Mean Plasma Glucose 126H, Hemoglobin A1c 6.0, Calcium Level 7.9L, Magnesium Level 2.2 05/12/19 04:10: Nucleated Red Blood Cells % (auto) 0.0, Lactic Acid Followup at 4 Hours 1.5 CBC/BMP Laboratory Tests 05/11/19 14:27 05/12/19 04:08 05/12/19 04:10 05/12/19 09:47 Microbiology Microbiology 05/12/19 Blood Culture, Received Pending 05/11/19 Respiratory Virus Panel (PCR) ([facility]) - Final, Complete Respiratory Syncytial Virus SHAYY HERRING MD May 12, 2019 13:51
[2019-05-12] MEDS ORDERED: SLF 3 ML SYR IV PRN (17:15)
[2019-05-12] MEDS: SLF 3 ML SYR IV SCH (20:17)
[2019-05-13] VITALS (14 sets, daily range): BP systolic 136–160; BP diastolic 81–88; O2SAT 90–99
[2019-05-13] MEDS: ALBUTEROL SULFATE 2.5 MG/0.5 ML INH NEB SOLN NEB PRN ×2 (01:39→08:58)
[2019-05-13] MEDS: ACETAMINOPHEN TAB 650MG DOSE (2X325MG) PO PRN (04:55)
[2019-05-13] MEDS: SLF 3 ML SYR IV SCH (04:56)
[2019-05-13 06:08] LABS: HEMOGLOBIN 15.2 g/dl (13.5-17.5); MEAN CORPUSCULAR HEMOGLOBIN 31.3 pg (27.0-33.0); MEAN CORPUSCULAR HGB CONC 33.8 g/dl (32.0-36.5); MEAN CORPUSCULAR VOLUME 92.8 fl (80.0-96.0); PLATELET COUNT, AUTOMATED 134 10^3/uL (150-450); RED BLOOD COUNT 4.85 10^6/uL (4.30-6.10); WHITE BLOOD COUNT 8.4 10^3/uL (4.0-10.0)
[2019-05-13 06:29] LABS: BLOOD UREA NITROGEN 18 MG/DL (7-18); CALCIUM LEVEL 8.2 MG/DL (8.5-10.1); CARBON DIOXIDE LEVEL 28 MEQ/L (21-32); CHLORIDE LEVEL 105 MEQ/L (98-107); CREATININE FOR GFR 0.86 MG/DL (0.70-1.30); GLOMERULAR FILTRATION RATE > 60.0 (>56); GLUCOSE, FASTING 99 MG/DL (70-100); POTASSIUM SERUM 3.7 MEQ/L (3.5-5.1); SODIUM LEVEL 140 MEQ/L (136-145)
[2019-05-13] MEDS ORDERED: BENZONATATE 100 MG CAP PO SCH (09:00)
[2019-05-13] MEDS ORDERED: guaiFENesin ER 600 MG TAB PO SCH (09:00)
[2019-05-13] MEDS: DOCUSATE SODIUM 100 MG CAP PO SCH (09:46)
[2019-05-13] MEDS: ENOXAPARIN 40 MG/0.4 ML SYRINGE (J1650) SC SCH (09:47)
--- NOTE | 2019-05-13 10:08 | IPNPDOC ---
Subjective Date Seen The patient was seen on 05/13/19. Subjective Chief Complaint/HPI oxygen needs has decreased rapidly, currently on room air. Feels that his sob is better Objective Physical Examination General Exam: Positive: Alert, Cooperative, No Acute Distress Eye Exam: Positive: PERRLA, EOMI; Negative: Sclera icteric Neck Exam: Positive: Supple Chest Exam: Positive: Clear to auscultation; Negative: Rhonchi, Wheezing Abdomen Exam: Positive: Normal bowel sounds Extremity Exam: Positive: Normal pulses; Negative: Clubbing, Cyanosis, Edema Skin Exam: Positive: Nl turgor and temperature; Negative: Rash Neuro Exam: Positive: Normal Speech Psych Exam: Positive: Mental status NL, Mood NL, Anxiety Assessment /Plan Assessment # Hyperkalemia likely from losartan and acute illness - resolved # Sepsis 2/2 to RSV URI with Acute hypoxic respiratory failure - improved - home today - tessalon and mucinex prn - f/u with pcp in 1 week - albuterol inh prn # Chronic HTN - may resume losartan Dispo: home today Plan/VTE VTE Prophylaxis Ordered?: Yes (lovenox sq) VTE Exclusion Mechanical Proph: N/A:VTE Prophy Ordered VTE Exclusion Pharmacological: N/A:VTE Prophy Ordered VS, I&O, 24H, Fishbone Vital Signs/I&O Vital Signs Date Time Temp Pulse Resp B/P (MAP) Pulse Ox O2 Delivery O2 Flow Rate FiO2 05/13/19 08:51 99.0 74 20 136/81 (99) 92 Room Air 05/13/19 06:00 1.0 I&O- Last 24 Hours up to 6 AM 05/13/19 06:00 Intake Total 1140 ml Output Total 0 ml Balance 1140 ml Laboratory Data 24H LABS Laboratory Tests 2 05/13/19 05:34: Nucleated Red Blood Cells % (auto) 0.0, Anion Gap 7L, Glomerular Filtration Rate > 60.0, Calcium Level 8.2L CBC/BMP Laboratory Tests 05/13/19 05:34 Microbiology Microbiology 05/12/19 Blood Culture - Preliminary, Resulted No growth after 24 hours . All specim... 05/11/19 Respiratory Virus Panel (PCR) ([facility]) - Final, Complete Respiratory Syncytial Virus SHAYY HERRING MD May 13, 2019 10:08
[2019-05-13] MEDS ORDERED: MUCI600T31 PO (10:13)
[2019-05-13] MEDS ORDERED: BENZ-18 PO (10:13)
[2019-05-13] MEDS ORDERED: PROAAER10 INH (10:13)
--- NOTE | 2019-05-14 19:10 | DSES ---
DATE OF ADMISSION: 05/11/2019 DATE OF DISCHARGE: 05/13/2019 DISCHARGE DIAGNOSES: 1. Hyperkalemia, likely secondary to losartan and acute illness, along with nonsteroidal antiinflammatory drugs (NSAIDS) use. 2. Sepsis secondary to respiratory syncytial virus (RSV). 3. Respiratory tract infection with acute hypoxic respiratory failure. 4. Chronic hypertension. PROCEDURES PERFORMED THIS HOSPITALIZATION: None. CONSULTANTS ON THE CASE: None. DISPOSITION: The patient is discharged home in stable condition without need for oxygen. LABORATORIES PENDING AT THE TIME OF DISCHARGE: None. DISCHARGE INSTRUCTIONS: The patient is instructed to followup with his primary care provider in approximately 1 week. He is to use: - albuterol inhaler - Tessalon - Mucinex As needed for control of his symptoms. I have advise him to wear a mask in public and to avoid large crowds for the next week. CONDITION ON DISCHARGE: Improved since admission. RELEVANT LABORATORIES DURING HOSPITALIZATION: White blood cell count 10.4, trended down to 8.4. Hemoglobin 15.2, hematocrit 45, platelet count 134. Blood gas showed a pH of 7.43, pCO2 of 31, pO2 of 61, bicarbonate 20, O2 saturation 91%. Preliminary basic metabolic panel (BMP) showed a sodium of 140, potassium 6.4 and that corrected to 3.7 by the time that he was discharged with treatment. His chloride is 105, bicarbonate 28, anion gap 7, BUN 18, creatinine 0.86, glucose 99, calcium 8.2, lactic acid on admission was 3.4 and trended down to 1.5. Respiratory viral panel was positive for RSV. Blood cultures have no growth at the time of discharge. RELEVANT IMAGING STUDIES: Chest x-ray showed no acute cardiopulmonary process. CTA of the chest showed no evidence of pulmonary emboli. No evidence of pneumonia. DISCHARGE MEDICATIONS: - albuterol inhaler two puffs every 4 to 6 hours as needed for wheezing - Tessalon Perles 100 mg by mouth three times a day as needed for cough - Mucinex 600 mg twice a day as needed for congestion - losartan 25 mg daily - Naprosyn 140 mg twice a day as needed for pain HOSPITAL COURSE: Mr. Rosenberg is a 54-year-old gentleman who had presented to the hospital with complaints of worsening shortness of breath, as well as wheezing. He was evaluated in the emergency room with a respiratory viral panel, which showed that he was infectious with RSV. He was admitted to the hospitalist service with a diagnosis of sepsis secondary to RSV upper respiratory tract infection with bronchitis and acute hypoxic respiratory failure. He was started on 6 liters of oxygen. Over the course of his hospital stay, we were able to wean that off. Clinically, his mild leukocytosis resolved. He was noted to be hyperkalemic on admission and this was felt to be secondary to a combination of his acute illness and chronic use of losartan and NSAIDs for treatment of his muscle aches associated with his viral illness. He did receive Kayexalate cocktail, which lowered his potassium. His losartan was held. Blood pressure was relatively well controlled. On the day of discharge, the patient's oxygen saturation were in excess of 91% on room air with ambulation. He is stable from my perspective to be discharged home. He is feeling considerably better. A total of 30 minutes was spent completing all discharge paperwork.
== END 2019-05-13 13:20 | disposition home or self-care (01) | DRG 720 ==
LOC: M ED 13:53 → M ED INP 20:20 → ENRESERV 23:05 → M PCU 05-12 00:11
PROVIDERS: ADMIT Internal Medicine; ATTEND Internal Medicine
DX: A41.89 Other specified sepsis (principal); J96.01 Acute respiratory failure with hypoxia; E87.2 Acidosis; B97.4 Respiratory syncytial virus as the cause of diseases classified elsewhere; E87.5 Hyperkalemia; R09.02 Hypoxemia; J06.9 Acute upper respiratory infection, unspecified; E66.9 Obesity, unspecified; I10 Essential (primary) hypertension; K57.90 Diverticulosis of intestine, part unspecified, without perforation or abscess without bleeding; Z68.37 Body mass index [BMI] 37.0-37.9, adult; Z79.899 Other long term (current) drug therapy; Z88.5 Allergy status to narcotic agent; Z88.8 Allergy status to other drugs, medicaments and biological substances

== ENCOUNTER → 2019-05-11 | Outpatient (REF) | payer BC ==
[~2019-05-11] MED LIST changes: +ALEV220T22 PO; +BENZ-18 PO; +MUCI600T31 PO; -NS 1,000 ML IV ONE; +PROAAER10 INH
[2019-05-11 17:23] LABS: INFLUENZA A AMPLIFICATION NEGATIVE (NEGATIVE); INFLUENZA B AMPLIFICATION NEGATIVE (NEGATIVE)
== END ==
LOC: M LAB REF 16:19
PROVIDERS: ATTEND Nurse Practitioner Adult Health
DX: J06.9 Acute upper respiratory infection, unspecified (principal); R50.9 Fever, unspecified

== ENCOUNTER 2019-08-03 14:03 | Emergency (ER) | payer OTHER, BC ==
[~2019-08-03] VITALS: Ht 165.1 cm; Wt 103.9 kg
[~2019-08-03 14:03] MED LIST changes: +ALEV220T22 PO; +BENZ-18 PO; +MUCI600T31 PO; +PROAAER10 INH
[2019-08-03 15:21] VITALS: BP 165/81
== END 2019-08-03 15:28 | disposition home or self-care (01) ==
LOC: M ED 14:03
DX: T70.0XXA Otitic barotrauma, initial encounter (principal); W38.XXXA Explosion and rupture of other specified pressurized devices, initial encounter; I10 Essential (primary) hypertension; F17.210 Nicotine dependence, cigarettes, uncomplicated; Y99.8 Other external cause status; Y92.89 Other specified places as the place of occurrence of the external cause; Y93.89 Activity, other specified

== ENCOUNTER 2020-05-21 08:24 | Emergency (ER) | payer BC, OTHER ==
[~2020-05-21] VITALS: Ht 165.1 cm; Wt 111.0 kg
[2020-05-21 09:39] LABS: BASO # 0.1 10^3/uL (0.0-0.2); BASO % 0.8 % (0.0-1.0); EOS # 0.4 10^3/uL (0.0-0.5); EOS % 5.2 % (0.0-3.0); HEMOGLOBIN 15.7 g/dl (13.5-17.5); LYMPH # 1.7 10^3/uL (1.5-5.0); LYMPH % 23.2 % (24.0-44.0); MEAN CORPUSCULAR HEMOGLOBIN 30.8 pg (27.0-33.0); MEAN CORPUSCULAR HGB CONC 33.4 g/dl (32.0-36.5); MEAN CORPUSCULAR VOLUME 92.3 fl (80.0-96.0); MONO # 0.6 10^3/uL (0.0-0.8); MONO % 7.5 % (2.0-8.0); NEUTROPHILS # 4.6 10^3/uL (1.5-8.5); NEUTROPHILS % 62.9 % (36.0-66.0); PLATELET COUNT, AUTOMATED 159 10^3/uL (150-450); RED BLOOD COUNT 5.09 10^6/uL (4.30-6.10); WHITE BLOOD COUNT 7.3 10^3/uL (4.0-10.0)
--- NOTE | 2020-05-21 09:41 | REP ---
INDICATION: left shoulder pain. COMPARISON: None. TECHNIQUE: There are three views. FINDINGS: Mineralization is normal. The acromioclavicular and glenohumeral joints are unremarkable. There is no fracture or dislocation. There are no calcifications or foreign bodies. IMPRESSION: Negative plain film study of the left shoulder. <Electronically signed by Elías Narayanan > 05/21/20 [id number]
--- NOTE | 2020-05-21 09:42 | REP ---
INDICATION: left shoulder pain. COMPARISON: 05/11/2019 TECHNIQUE: Upright PA and lateral chest. FINDINGS: The lung song are clear. Cardiac size is normal. The darke, mediastinum and skeletal structures are unremarkable. IMPRESSION: Essentially negative PA and lateral chest There is no change from the comparison study. <Electronically signed by Elías Narayanan > 05/21/20 [id number]
[2020-05-21] MEDS ORDERED: ISOVUE-370 76% 100ML VIAL As Ordered ONE (11:24)
[2020-05-21 12:07] VITALS: BP 166/87
--- NOTE | 2020-05-21 12:11 | REP ---
INDICATION: r/o left PE. COMPARISON: 05/11/2019. TECHNIQUE: CT angiogram chest performed following the intravenous administration of 100 cc of Isovue 370. Sagittal and coronal reconstruction images are performed. FINDINGS: Lungs: Clear, no infiltrate or nodule. Mediastinum: No adenopathy. Pulmonary arteries: No evidence of pulmonary embolism. Iram: No adenopathy. Axilla: No adenopathy. Pleura: No effusion. Heart: Not enlarged. Thoracic aorta: No aneurysm or dissection. Upper abdominal structures: Unremarkable. Visualized osseous structures: There are degenerative changes of the spine without compression deformity. There is a calcified granuloma in the spleen. IMPRESSION: No CT evidence of pulmonary embolism. No infiltrate seen. <Electronically signed by Elías Rodrigez > 05/21/20 [id number]
[2020-05-21] MEDS ORDERED: IBUP-1022 PO (12:19)
[2020-05-21] MEDS ORDERED: IBUPROFEN 600MG TAB PO ONE (12:20)
--- NOTE | 2020-05-21 17:38 | ECGEPIP ---
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
== END 2020-05-21 12:53 | disposition home or self-care (01) ==
LOC: M ED 08:24
DX: M54.6 Pain in thoracic spine (principal); I10 Essential (primary) hypertension; Z79.899 Other long term (current) drug therapy; Z88.5 Allergy status to narcotic agent; Z88.8 Allergy status to other drugs, medicaments and biological substances
CPT/HCPCS: 36415; 71046; 71275; 73030; 80047; 84484; 85025; 85379; 93005; 99284; Q9967

== ENCOUNTER → 2020-10-26 | Outpatient (REF) | payer BC ==
[~2020-10-26] MED LIST changes: +IBUP-1022 PO
[2020-10-27 20:22] LABS: TESTOSTERONE FREE (DIRECT) 10.3 pg/mL (7.2-24.0)
== END ==
LOC: M LAB REF 11:14
PROVIDERS: ATTEND Physician Assistant Medical
DX: R68.82 Decreased libido (principal)

== ENCOUNTER 2021-05-30 14:55 | Emergency (ER) | payer BC ==
[~2021-05-30] VITALS: Ht 167.6 cm; Wt 104.6 kg
[~2021-05-30 14:55] MED LIST changes: +LOSA25TA13 PO; -LOSA25TA14 PO
[2021-05-30 14:56] VITALS: BP 197/87
== END 2021-05-30 15:35 | disposition left against medical advice (07) ==
LOC: M ED 14:55
DX: Z53.29 Procedure and treatment not carried out because of patient's decision for other reasons (principal)

== ENCOUNTER → 2021-09-09 | Outpatient (CLI) | payer BC | LOC: M WUC 14:56 | PROVIDERS: ATTEND Physician Assistant Medical | DX: M51.37 Other intervertebral disc degeneration, lumbosacral region (principal); M50.321 Other cervical disc degeneration at C4-C5 level; M50.322 Other cervical disc degeneration at C5-C6 level; M50.323 Other cervical disc degeneration at C6-C7 level; R20.0 Anesthesia of skin; R20.2 Paresthesia of skin; M54.50 Low back pain, unspecified; R06.02 Shortness of breath ==

== ENCOUNTER 2022-04-15 18:19 | Emergency (ER) | payer BC ==
[~2022-04-15] VITALS: Ht 165.1 cm; Wt 113.6 kg
[2022-04-15 18:21] VITALS: BP 131/88
[2022-04-16] MEDS ORDERED: ACETAMINOPHEN TAB 650MG DOSE (2X325MG) PO ONE (01:35)
== END 2022-04-16 01:30 | disposition left against medical advice (07) ==
LOC: M ED 18:19
DX: Z53.21 Procedure and treatment not carried out due to patient leaving prior to being seen by health care provider (principal)

== ENCOUNTER 2022-07-17 11:25 | Day surgery (SDC) | payer BC ==
[~2022-07-17] VITALS: Ht 167.6 cm; Wt 100.8 kg
[~2022-07-17 11:25] MED LIST changes: +AZEL1SPR3; +NS 1,000 ML IV ONE
[2022-07-17] MEDS ORDERED: LIDOCAINE 2% MDV 20ML VIAL As Ordered ONE (13:00)
[2022-07-17] MEDS ORDERED: propofoL 200 MG/20 ML VIAL As Ordered ONE (13:00)
[2022-07-17 13:15] VITALS: BP 141/91
== END 2022-07-17 13:20 | disposition home or self-care (01) ==
LOC: M OPP 11:25
PROVIDERS: ATTEND Surgery
DX: Z12.11 Encounter for screening for malignant neoplasm of colon (principal); Z86.010 Personal history of colon polyps; K57.30 Diverticulosis of large intestine without perforation or abscess without bleeding; F17.200 Nicotine dependence, unspecified, uncomplicated; Z79.899 Other long term (current) drug therapy; Z88.5 Allergy status to narcotic agent

== ENCOUNTER → 2022-08-27 | Outpatient (CLI) | payer BC ==
[~2022-08-27] MED LIST changes: +E-Z-GAS II EFFERVESCENT PACKET (SODIUM BICARB./CITRIC ACID/SIMETHICONE) As Ordered ONE; +E-Z-HD 98% w/w 340GM SUSP BTL As Ordered ONE; +E-Z-PAQUE 96% w/w SUSP 176GM BTL As Ordered ONE; -NS 1,000 ML IV ONE
== END ==
LOC: M RAD 08:20
PROVIDERS: ATTEND Surgery
DX: R10.13 Epigastric pain (principal)

== ENCOUNTER → 2023-06-19 | Outpatient (CLI) | payer BC ==
[~2023-06-19] MED LIST changes: -E-Z-GAS II EFFERVESCENT PACKET (SODIUM BICARB./CITRIC ACID/SIMETHICONE) As Ordered ONE; -E-Z-HD 98% w/w 340GM SUSP BTL As Ordered ONE; -E-Z-PAQUE 96% w/w SUSP 176GM BTL As Ordered ONE
== END ==
LOC: M RAD 14:55
PROVIDERS: ATTEND Physician Assistant
DX: Z12.2 Encounter for screening for malignant neoplasm of respiratory organs (principal); G89.29 Other chronic pain; M25.512 Pain in left shoulder; F17.210 Nicotine dependence, cigarettes, uncomplicated

== ENCOUNTER → 2023-06-25 | Outpatient (CLI) | payer BC ==
[2023-06-25 07:32] LABS: BASO # 0.1 10^3/uL (0.0-0.2); BASO % 0.7 % (0.0-1.0); EOS # 0.3 10^3/uL (0.0-0.5); HEMATOCRIT 52.2 % (42.0-52.0); HEMOGLOBIN 17.7 g/dl (13.5-17.5); LYMPH # 1.9 10^3/uL (1.5-5.0); LYMPH % 21.9 % (24.0-44.0); MEAN CORPUSCULAR HEMOGLOBIN 31.3 pg (27.0-33.0); MEAN CORPUSCULAR HGB CONC 33.9 g/dl (32.0-36.5); MEAN CORPUSCULAR VOLUME 92.2 fl (80.0-96.0); MONO # 0.7 10^3/uL (0.0-0.8); MONO % 7.8 % (2.0-8.0); NEUTROPHILS # 5.5 10^3/uL (1.5-8.5); NEUTROPHILS % 65.1 % (36.0-66.0); PLATELET COUNT, AUTOMATED 147 10^3/uL (150-450); RED BLOOD COUNT 5.66 10^6/uL (4.30-6.10); WHITE BLOOD COUNT 8.5 10^3/uL (4.0-10.0)
[2023-06-25 07:47] LABS: HEMOGLOBIN A1c 5.5 % (4.0-6.0)
[2023-06-25 08:00] LABS: ALBUMIN 3.8 G/DL (3.2-5.2); ALKALINE PHOSPHATASE 77 U/L (46-116); ALT/SGPT 26 U/L (7.0-40); AST/SGOT 17 U/L (<34); BILIRUBIN,TOTAL 0.6 MG/DL (0.3-1.2); BLOOD UREA NITROGEN 10 MG/DL (9-23); CALCIUM LEVEL 9.2 MG/DL (8.5-10.1); CARBON DIOXIDE LEVEL 29 MMOL/L (20-31); CHLORIDE LEVEL 107 MMOL/L (98-107); CHOLESTEROL LEVEL 131 MG/DL (<200); CREATININE FOR GFR 0.81 MG/DL (0.70-1.30); GLOMERULAR FILTRATION RATE > 60.0 (>56); GLUCOSE, FASTING 110 MG/DL (60-100); HDL CHOLESTEROL 37.4 MG/DL (>40); LDL CHOLESTEROL 78.4 MG/DL (<100); NON-HDL-C 93.6 MG/DL; POTASSIUM SERUM 4.4 MMOL/L (3.5-5.1); SODIUM LEVEL 140 MMOL/L (136-145); TOTAL PROTEIN 6.4 G/DL (5.7-8.2); TRIGLYCERIDES LEVEL 76 MG/DL (<150)
[2023-06-25 08:01] LABS: FREE T4 1.13 NG/DL (0.89-1.76)
[2023-06-25 08:02] LABS: THYROID STIMULATING HORMONE 0.803 uIU/ML (0.55-4.78); TOTAL 25(OH) VITAMIN D 17.2 NG/ML (20.0-100.0)
[2023-06-25 08:03] LABS: VITAMIN B12 LEVEL 537 PG/ML (211-911)
[2023-06-25 08:05] LABS: FOLATE 22.9 NG/ML (>5.4)
== END ==
LOC: M LAB 07:01
PROVIDERS: ATTEND Physician Assistant
DX: I10 Essential (primary) hypertension (principal); E66.01 Morbid (severe) obesity due to excess calories; Z12.5 Encounter for screening for malignant neoplasm of prostate; R53.83 Other fatigue; Z68.41 Body mass index [BMI] 40.0-44.9, adult

== ENCOUNTER → 2024-03-04 | Outpatient (CLI) | payer BC | LOC: M SLEEP 20:00 | PROVIDERS: ATTEND Physician Assistant | DX: G47.33 Obstructive sleep apnea (adult) (pediatric) (principal) ==

== ENCOUNTER → 2024-04-08 | Outpatient (REF) | payer BC ==
[2024-04-08 17:34] LABS: BASO # 0.1 10^3/uL (0.0-0.2); BASO % 0.8 % (0.0-1.0); EOS # 0.4 10^3/uL (0.0-0.5); EOS % 4.2 % (0.0-3.0); HEMATOCRIT 52.8 % (42.0-52.0); HEMOGLOBIN 17.3 g/dl (13.5-17.5); LYMPH # 2.3 10^3/uL (1.5-5.0); LYMPH % 23.2 % (24.0-44.0); MEAN CORPUSCULAR HEMOGLOBIN 31.2 pg (27.0-33.0); MEAN CORPUSCULAR HGB CONC 32.8 g/dl (32.0-36.5); MEAN CORPUSCULAR VOLUME 95.1 fl (80.0-96.0); MONO # 0.9 10^3/uL (0.0-0.8); MONO % 8.7 % (2.0-8.0); NEUTROPHILS # 6.2 10^3/uL (1.5-8.5); NEUTROPHILS % 62.7 % (36.0-66.0); PLATELET COUNT, AUTOMATED 165 10^3/uL (150-450); RED BLOOD COUNT 5.55 10^6/uL (4.30-6.10); WHITE BLOOD COUNT 9.9 10^3/uL (4.0-10.0)
[2024-04-08 17:36] LABS: ALBUMIN 3.8 G/DL (3.2-5.2); ALKALINE PHOSPHATASE 74 U/L (40-129); ALT/SGPT 26 U/L (7.0-40); AST/SGOT 16 U/L (<34); BILIRUBIN,TOTAL 0.7 MG/DL (0.3-1.2); BLOOD UREA NITROGEN 12 MG/DL (9-23); C REACTIVE PROTEIN QUANTITATIV < 0.50 MG/DL (<1.0); CARBON DIOXIDE LEVEL 30 MMOL/L (20-31); CHLORIDE LEVEL 107 MMOL/L (98-107); CHOLESTEROL LEVEL 138 MG/DL (<200); CHOLESTEROL RISK RATIO 3.65 (<5); CREATININE FOR GFR 0.91 MG/DL (0.70-1.30); GLOMERULAR FILTRATION RATE > 60.0 (>56); GLUCOSE, FASTING 89 MG/DL (60-100); HDL CHOLESTEROL 37.8 MG/DL (>40); LDL CHOLESTEROL 75.8 MG/DL (<100); NON-HDL-C 100.2 MG/DL; POTASSIUM SERUM 4.7 MMOL/L (3.5-5.1); RHEUMATOID FACTOR QUANT < 3.5 IU/ML (<14); SODIUM LEVEL 142 MMOL/L (136-145); TOTAL PROTEIN 6.7 G/DL (5.7-8.2); TRIGLYCERIDES LEVEL 122 MG/DL (<150)
[2024-04-08 17:37] LABS: TOTAL 25(OH) VITAMIN D 65.4 NG/ML (20.0-100.0)
[2024-04-08 17:42] LABS: ERYTHROCYTE SEDIMENTATION RATE 11 mm/hr (0-20)
[2024-04-08 17:51] LABS: HEMOGLOBIN A1c 5.6 % (4.0-6.0)
[2024-04-11 16:42] LABS: ANA SCREEN, IFA NEGATIVE (NEGATIVE)
== END ==
LOC: M SFHCLERA 10:06
DX: R53.82 Chronic fatigue, unspecified (principal); I10 Essential (primary) hypertension; R73.03 Prediabetes; E55.9 Vitamin D deficiency, unspecified

== ENCOUNTER → 2024-05-14 | Outpatient (CLI) | payer BC | LOC: M SLEEP 20:00 | PROVIDERS: ATTEND Physician Assistant | DX: G47.33 Obstructive sleep apnea (adult) (pediatric) (principal) ==